=== PATIENT | male | born 2000 | race Caucasian/White ===

== ENCOUNTER 2024-02-29 06:20 | Emergency (ER) | payer SELFPAY ==
[2024-02-29 06:23] VITALS: BP 134/64; PULSE 73; RESP 16; TEMP 36.7; O2SAT 98; BMI 29.2
[2024-02-29 06:26] VITALS: BP 128/65; PULSE 66; RESP 16; TEMP 36.7; O2SAT 97; O2SAT 99
--- NOTE | 2024-02-29 06:40 | EKG12_ITS ---
Test Reason : CP/SOB Blood Pressure : / mmHG Vent. Rate : 063 BPM Atrial Rate : 063 BPM P-R Int : 148 ms QRS Dur : 090 ms QT Int : 410 ms P-R-T Axes : 054 064 042 degrees QTc Int : 419 ms Normal sinus rhythm Normal ECG Confirmed by SHELBI NORRIS, COLLIN ([id number]), school photograph editor MAVIS POSEY ([id number]) on 03/07/2024 10:24:00 A M Referred By: ODILIA Confirmed By:MUSHTAQ MARIO MD
--- NOTE | 2024-02-29 06:43 | EDS_ITS ---
HPI History of Present Illness Chief Complaint: Shortness of Breath Informant: patient Narrative Narrative: Patient is a 23-year-old male with no significant past medical history although he does admit to smoking roughly a pack a day for the past 3 years. He states that over the past week he has had mild congestion and cough. With this he has increased shortness of breath. He denies any history of asthma or reactive airway disease. He denies any fevers or chills or known sick contact. He states has been no recent travel or surgery nor has he ever been diagnosed with a DVT/PE. He states is no family history of cardiac disease at a young age. He states however he feels like his shortness of breath has worsened and therefore comes in for evaluation [facility] Medical History no medical history no medical history Home Medications ?Medication ?Instructions ?Recorded ?Last Taken ?Type albuterol sulfate 90 mcg/actuation 2 puff inhalation Q4H PRN PRN 02/29/24 Unknown Rx aerosol inhaler (Ventolin HFA) Wheezing/SOB #1 device prednisone 20 mg tablet 40 mg (2 x 20 mg) PO DAILY 7 days 02/29/24 Unknown Rx #14 tabs Allergy/AdvReac Type Severity Reaction Status Date / Time No Known Allergies Allergy Verified 02/29/24 06:23 Family History no significant family his Surgical History no surgical history Social History Smoking Status: Current every day smoker tobacco type: cigarettes ROS ROS ED Constitutional Constitutional ED: Denies chills or fever(s) ENT ENT ED: Reports rhinorrhea and sore throat Cardiovascular Cardiovascular: Denies chest pain Respiratory/Chest Respiratory/Chest: Reports cough and dyspnea Gastrointestinal Gastrointestinal: Denies abdominal pain, diarrhea, nausea or vomiting Genitourinary Genitourinary ED: Denies dysuria Musculoskeletal Musculoskeletal: Denies myalgias Integumentary Denies rash Neurologic Neurologic: Denies headache(s) Hematologic/Lymphatic Hematologic/Lymphatic: Denies easy bleeding or easy bruising EXAM Physical Exam Const Vital Signs: 02/29/24 06:23 02/29/24 06:26 02/29/24 06:26 Temperature 98.1 F 98.1 F Temperature Source Oral Oral Pulse Rate 73 66 Respiratory Rate 16 16 Respiratory Effort Short of Breath Respiratory Pattern Normal Blood Pressure 134/64 H 128/65 H Blood Pressure Mean 87 86 Pulse Ox 98 99 Oxygen Delivery Method Room Air Room Air Room Air 02/29/24 06:50 Temperature Temperature Source Pulse Rate 65 Respiratory Rate 16 Respiratory Effort Respiratory Pattern Blood Pressure Blood Pressure Mean Pulse Ox Oxygen Delivery Method Positive well nourished and well developed General Appearance ED: well developed; Negative for pallor HEENT HEENT Narrative: Bilateral TMs are retracted but show no secondary changes to suggest infection Nasal mucosa is hyperemic and boggy Posterior pharynx displays cobblestoning consistent with sinus drainage without airway edema or compromise No secondary findings to suggest infection Eyes PERRL and EOMs intact bilaterally General Eye ED: Negative for pale conjunctiva or scleral icterus Neck supple and no JVD Neck Narrative: No nuchal rigidity or meningeal signs noted Chest Wall palpation of chest normal Chest Narrative: No bony deformity or crepitance Resp normal respiratory effort Resp Narrative: Breath sounds are diminished throughout with scattered rhonchi and faint expiratory wheezes in the bilateral lower lobes. Otherwise no nasal flaring retractions tachypnea or accessory muscle use Cardio regular rate and regular rhythm Rate: other Other Details: Heart is regular rate and rhythm without murmurs rubs or gallops Radial and carotid pulses are equal and symmetric Extremity normal to inspection Extremity Narrative: No asymmetric edema no pitting edema negative Homans' sign bilaterally Neuro oriented x3, CN's II-XII intact bilaterally and no sensory deficits noted Sensorium / Orientation: alert Motor Exam: strength 5/5 throughout Psych mental status grossly normal Skin no rashes or lesions noted and no wounds General Skin Exam: Negative for jaundice or pallor MDM MDM MDM Narrative Medical decision making narrative: Patient arrived to ER with stable vitals satting 98 to 100% on room air. He reported shortness of breath with mild congestion and differential diagnosis is for viral infection such as COVID versus influenza versus RSV. There is also concern for pneumonia versus pneumothorax. He is low risk for acute coronary syndrome but ACS is not a dyspnea equivalent and he does not have any risk factors for PE but that is still in the differential. Secondary to this an EKG was obtained which revealed normal sinus rhythm without ischemic changes and as patient is PERC negative there is no need for a D-dimer. Inferior acute blood loss anemia or electrolyte abnormality such as hypomagnesemia could lead to shortness of breath but patient denies any history of bleeding disorder or acute blood loss and has not had bouts of nausea or vomiting which goes against an electrolyte abnormality. Therefore there is no need for blood tests. As patient's history and exam is most consistent with a viral syndrome COVID influenza and RSV swab will be obtained in order to rule out pneumonia chest x- ray will be ordered. Patient's viral swab is negative and chest x-ray revealed no acute lung pathology. After receiving Solu-Medrol and a breathing treatment he did have improvement of symptoms and he remained in no acute respiratory distress. Therefore at this time with improvement of symptoms and negative workup there is no need for further evaluation and patient is otherwise safe for discharge History & Record Review Discussion w/independent historian: Patient Discharge Plan Triage Chief Complaint: Shortness of Breath ED Provider: Alan Oliver Dx/Rx/DC Orders Clinical Impression: Viral upper respiratory tract infection with cough, Tobacco use Instructions: ED Pleurisy, ED URI, Viral, No Abx (Adult) Prescriptions: New prednisone 20 mg tablet 40 mg PO DAILY 7 Days Qty: 14 0RF albuterol sulfate [Ventolin HFA] 90 mcg/actuation HFA aerosol inhaler 2 puff inhalation Q4H PRN PRN (Reason: Wheezing/SOB) Qty: 1 0RF Primary Care Provider: Abbie Ramos,Out of Referrals: Abbie Ramos,Out of [Primary Care Provider] - Activity Restrictions/Additional Instructions: Your workup today showed no signs of pneumonia and your COVID test was negative. However your constellation of symptoms is consistent with a viral infection. This will last on average 3 weeks. Use the prednisone as directed to reduce inflammation and the inhaler to help with bronchospasm. Return to the ER should you have any further concerns or worsening symptoms despite treatment Print Language: Khmer Disposition Disposition: Home, Self Care
[2024-02-29] MEDS: Ipratropium/Albuterol Sulfate 3 ML AMPUL.NEB INHALATION (06:48)
[2024-02-29 06:50] VITALS: PULSE 65; RESP 16
[2024-02-29] MEDS: MethylPREDNISolone 125 MG/2 ML Vial IV (06:55)
--- NOTE | 2024-02-29 07:10 | RAD_ITS ---
INDICATION: cough EXAMINATION/TECHNIQUE: X-RAY - XR Chest 2 Views COMPARISON: None. FINDINGS: LINES/DEVICES: None. LUNGS: No consolidation. No pneumothorax. MEDIASTINUM: Unremarkable. CARDIAC SILHOUETTE: Not enlarged. BONES AND SOFT TISSUES: No acute abnormalities. RAD/Chest PA and Lateral IMPRESSION: No evidence of active intrathoracic disease. Electronically Signed: Alison Zamudio MD at 7:35 EDT ,
[2024-02-29 07:26] VITALS: BP 128/61; PULSE 73; RESP 15; TEMP 36.4; O2SAT 97
[2024-02-29 07:39] VITALS: BP 128/73; PULSE 88; RESP 18; TEMP 36.7; O2SAT 98
== END 2024-02-29 07:46 | disposition home or self-care (01) ==
PROVIDERS: Emergency Provider Emergency Medicine; Visit Provider Emergency Medicine
DX: J06.9 Acute upper respiratory infection, unspecified (principal); F17.210 Nicotine dependence, cigarettes, uncomplicated
CPT/HCPCS: 71046; 87631; 93005; 94640; 96374; 99283; A4216

== ENCOUNTER 2024-03-14 10:59 | Emergency (ER) | payer SELFPAY ==
[2024-03-14 10:59] VITALS: BP 125/81; PULSE 74; RESP 14; TEMP 36.6; O2SAT 98; BMI 28.1
--- NOTE | 2024-03-14 11:04 | ED.RN ---
CO-WORKER WITH PT STATES WE NEED TO WORRY ABOUT HIS FOOT BEFORE THE WORKERS COMP STUFF.
[2024-03-14] MEDS: Diphth,Pertuss(Acell),Tet Vac 0.5 ML Vial IM (11:34)
[2024-03-14] MEDS: HYDROmorphone 1 MG/ML Syringe IV (11:35)
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
[2024-03-14] MEDS: Cefazolin 1 GM/50 ML BAG IV (11:57)
[2024-03-14 11:59] VITALS: BP 138/68; PULSE 70; RESP 16; O2SAT 98
[2024-03-14 12:00] VITALS: BP 138/68; PULSE 70; RESP 16; O2SAT 98
[2024-03-14 13:00] VITALS: BP 101/52; PULSE 50; RESP 14; O2SAT 100
[2024-03-14] MEDS: Morphine 2 MG/ML Syringe IV (13:07)
[2024-03-14 14:17] VITALS: BP 125/65; PULSE 55; RESP 17; TEMP 36.6; O2SAT 100
--- NOTE | 2024-03-14 14:18 | ED.RN ---
Report given to Rosibel RONQUILLO @ [facility].
--- NOTE | 2024-03-14 14:31 | ED.RN ---
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 Both understood and agreed. Pt taken out by wheelchair.
== END 2024-03-14 14:32 | disposition short-term general hospital (02) ==
PROVIDERS: Emergency Provider Emergency Medicine; Visit Provider Emergency Medicine
DX: T70.4XXA Effects of high-pressure fluids, initial encounter (principal); T25.022A Burn of unspecified degree of left foot, initial encounter; F17.210 Nicotine dependence, cigarettes, uncomplicated; X11.8XXA Contact with other hot tap-water, initial encounter; Z23 Encounter for immunization
CPT/HCPCS: 73590; 73630; 90471; 90715; 96365; 96375; 99284; A4216; J3490

== ENCOUNTER 2024-04-26 06:28 | Emergency (ER) | payer SELFPAY ==
[2024-04-26 06:30] VITALS: BP 148/80; PULSE 72; RESP 16; TEMP 36.4; O2SAT 98; BMI 27.3
--- NOTE | 2024-04-26 06:39 | ED.VIS.GI ---
HPI HPI - GI History of Present Illness Chief Complaint: Nausea/Vomiting Narrative Narrative: 23-year-old male who denies significant past medical history presents with nausea and vomiting that began this morning. Happened about an hour ago. He woke up and felt nauseated. He vomited twice without any blood in his emesis. Last bowel movement was approximately 2 days ago which is normal for him. He denies any past abdominal surgeries. No fevers or chills. No dysuria or hematuria. He has crampy abdominal pain in the periumbilical area. Denies any marijuana use. No exacerbating or alleviating factors. He did smoke a cigarette this morning which she thinks may have his nausea worse. It was before he started vomiting. PFSH PFS Home Medications ?Medication ?Instructions ?Recorded ?Last Taken ?Type melatonin 10 mg capsule 20 mg PO QHS 04/26/24 Unknown History Allergy/AdvReac Type Severity Reaction Status Date / Time No Known Allergies Allergy Verified 04/26/24 06:29 Social History Smoking Status: Current every day smoker tobacco type: cigarettes ROS ROS ED ROS Narrative Constitutional: No fever, no chills. Cardiovascular: No chest pain. No palpitations. No pedal edema. Respiratory: No cough, no shortness of breath. Abdominal: Periumbilical crampy abdominal pain. 2 episodes of nausea and vomiting. No diarrhea. Genitourinary: No dysuria. No hematuria. Neurologic: No headaches. No dizziness. No lightheadedness. Psychiatric: No depression. No anxiety. EXAM Physical Exam Narrative Exam Narrative: Afebrile. Vital signs noted. Nontoxic-appearing. Regular rate and rhythm. Lungs are clear to auscultation bilaterally. Abdomen is soft and nontender without guarding or rebound. Negative Kraft sign. Normoactive bowel sounds. Neurological examination is nonfocal and nonlateralizing. Const Vital Signs: 04/26/24 06:30 Temperature 97.6 F L Temperature Source Temporal Pulse Rate 72 Respiratory Rate 16 Blood Pressure 148/80 H Blood Pressure Mean 102 Pulse Ox 98 Oxygen Delivery Method Room Air MDM MDM MDM Narrative Medical decision making narrative: Differential diagnosis includes but not limited to gastritis versus pancreatitis versus nonspecific abdominal pain. I have low suspicion for acute appendicitis based on his current physical examination. He has no pain in the right lower quadrant. Initially, patient will be treated symptomatically with a bolus of normal saline and ondansetron along with an intramuscular shot of Bentyl. Will check his CBC, CMP, and lipase to help rule out pancreatitis. After these are checked, any imaging will be deferred to the oncoming physician. I did review his laboratory work and he has a normal white count of 7.6, hemoglobin 16.4 hematocrit 47.5, platelet count normal at 250. I reviewed his CMP and his glucose is elevated at 113 with an anion gap low at 4. LFTs are grossly unremarkable. Lipase is normal at 36 so I doubt pancreatitis. Repeat examination at approximately 7:15 AM shows that he still has periumbilical pain with mild tenderness, and he has less nausea. Given my reassessment that he is still having abdominal pain. CT of the abdomen and pelvis with IV contrast will be obtained to rule out any acute pathology. Patient will be signed out to the oncoming physician, Dr. Dill to check the CT of the abdomen and pelvis and make final disposition. Patient is in stable condition. History & Record Review Discussion w/independent historian: Patient Lab Data Attestation: I reviewed the patient's lab results. Labs: Laboratory Results - last 24 hr 04/26/24 06:46 WBC 7.6 RBC 5.21 Hgb 16.4 Hct 47.5 MCV 91.2 MCH 31.5 MCHC 34.5 RDW Std Deviation 39.9 RDW Coeff of Rene 12.0 Plt Count 250 MPV 9.8 Immature Gran % (Auto) 0.400 Neut % (Auto) 59.0 Lymph % (Auto) 30.9 [place] % (Auto) 6.7 Eos % (Auto) 2.1 Baso % (Auto) 0.9 Absolute Neuts (auto) 4.5 Absolute Lymphs (auto) 2.36 Nucleated RBC % 0 Sodium 141 Potassium 3.7 Chloride 106 Carbon Dioxide 31.0 Anion Gap 4 L BUN 15 Creatinine 0.83 Estim Creat Clear Calc 131.63 Est GFR (MDRD) Af Amer 145 Est GFR (MDRD) Non-Af 120 BUN/Creatinine Ratio 18.2 Glucose 113 H Calcium 9.5 Total Bilirubin 0.50 AST 17 ALT 21 Alkaline Phosphatase 72 Total Protein 7.3 Albumin 4.2 Globulin 3.1 Albumin/Globulin Ratio 1.4 Lipase 36 Discharge Plan Triage Chief Complaint: Nausea/Vomiting ED Provider: Aquilino Craig Dx/Rx/DC Orders Prescriptions: No Action melatonin 10 mg capsule 20 mg PO QHS Primary Care Provider: Care Physician,No Primary Referrals: Care Physician,No Primary [Primary Care Provider] - Print Language: [place] Citizen
[2024-04-26] MEDS: 0.9% Normal Saline (1000mL) 1,000 ML 999 ML IV (06:46)
[2024-04-26] MEDS: Ondansetron 4 MG/2 ML Vial IV (06:46)
[2024-04-26] MEDS: Dicyclomine 20 MG/2 ML Vial IM (06:49)
[2024-04-26 06:51] LABS: Absolute Lymphocyte Count 2.36 X10^3/uL (0.83-4.51); Absolute Neutrophil Count 4.5 X10^3/uL (2.0-7.7); Basophil# 0.07 X10^3/uL; Basophil% 0.9 % (0-1); Eosinophil# 0.16 X10^3/uL; Eosinophils% 2.1 % (0-5); Hematocrit 47.5 % (40-54); Hemoglobin 16.4 g/dL (13.0-16.5); Lymphocyte # 2.36 X10^3/ul (0.83-4.51); Lymphocyte % 30.9 % (19-41); Mean Corp Hgb Conc 34.5 g/dL (32-36); Mean Corpuscular Hgb 31.5 pg (27.0-32.0); Mean Corpuscular Volume 91.2 fL (80-94); Mean Platelet Vol. 9.8 fl (6.2-12.0); Monocyte# 0.51 X10^3/uL; Monocyte% 6.7 % (0-10); NRBC Flagged by Analyzer 0 % (0-5); Neutrophil # 4.51 X10^3/uL (2.7-7.7); Platelet Count 250 K/mm3 (150-450); RBC Distribution Width SD 39.9 fl (35.1-43.9); Red Blood Count 5.21 M/mm3 (4.6-6.2); White Blood Count 7.6 K/mm3 (4.4-11.0)
[2024-04-26 07:07] LABS: ALB/GLOB Ratio 1.4 RATIO (0.9-2.4); AST(SGOT) 17 U/L (15-37); Alanine Aminotransfer ALT/SGPT 21 U/L (16-61); Albumin, Serum 4.2 g/dL (3.2-5.0); Alkaline Phosphatase 72 U/L (45-117); Anion Gap 4 (5-15); BUN 15 mg/dL (7-18); BUN/Creat Ratio 18.2 RATIO (10-20); Calcium,Total 9.5 mg/dL (8.5-10.1); Chloride 106 mmol/L (98-107); Creatinine, Serum 0.83 mg/dL (0.70-1.30); EST Glomerular Filtration Rate 120 mL/min (>60); Est Glom Filt Rate - Afr Amer 145 mL/min (>60); Estimated Creatinine Clearance 131.63 ml/min; Globulin 3.1 g/dL (2.2-4.2); Glucose 113 mg/dL (74-106); Lipase 36 U/L (13-75); Potassium 3.7 mmol/L (3.5-5.1); Protein, Total 7.3 g/dL (6.4-8.2); Sodium Level 141 mmol/L (136-145)
--- NOTE | 2024-04-26 07:16 | CT_ITS ---
EXAM: CT ABDOMEN AND PELVIS WITH INTRAVENOUS CONTRAST CLINICAL INDICATION: abdominal pain TECHNIQUE: Helically acquired images were obtained of the abdomen and pelvis with intravenous contrast. This CT exam was performed using one or more of the following dose reduction techniques: automated exposure control, adjustment of the mA and/or kV according to patient size, and/or use of iterative reconstruction technique. CONTRAST: IV 100mL Isovue-370 RADIATION DOSE: CTDIvol = 12.08 mGy, DLP = 586.82 mGy-cm COMPARISON: No relevant prior studies available. FINDINGS: LOWER THORAX: Unremarkable. Lung bases are clear. No cardiomegaly. No significant pericardial effusion. ABDOMEN: LIVER: Unremarkable. Homogeneous. No focal mass. GALLBLADDER AND BILE DUCTS: Unremarkable. No calcified gallstones. No gallbladder distention or wall edema. No intra- or extrahepatic biliary ductal dilation. PANCREAS: Unremarkable. No focal cystic or solid mass. SPLEEN: Unremarkable. Normal size without focal cystic or solid mass. ADRENALS: Unremarkable. No nodules. KIDNEYS AND URETERS: Unremarkable. Normal renal size and position. No hydronephrosis. STOMACH AND BOWEL: Unremarkable. No stomach or bowel distention. No focal inflammatory change. PELVIS: APPENDIX: Normal. BLADDER: Unremarkable. REPRODUCTIVE: Unremarkable as visualized. No mass. ABDOMEN and PELVIS: INTRAPERITONEAL SPACE: Unremarkable. No ascites or other fluid collection. No free air. BONES/JOINTS: Unremarkable. No suspicious lytic or blastic abnormality. SOFT TISSUES: Unremarkable. No discrete abdominal or pelvic wall hernia. VASCULATURE: Unremarkable. Abdominal aorta is non-dilated. LYMPH NODES: Unremarkable. No enlarged lymph nodes. CT/Abdomen/Pelvis W IV Cont ONLY IMPRESSION: Negative CT of the abdomen and pelvis with intravenous contrast. Electronically Signed: Aquilino Starr MD at 8:31 EDT ,
[2024-04-26 09:59] VITALS: BP 124/80; PULSE 57; RESP 18; TEMP 36.6; O2SAT 97
== END 2024-04-26 10:01 | disposition home or self-care (01) ==
PROVIDERS: Emergency Provider Emergency Medicine; Visit Provider Emergency Medicine
DX: R11.2 Nausea with vomiting, unspecified (principal); F17.210 Nicotine dependence, cigarettes, uncomplicated; R10.33 Periumbilical pain
CPT/HCPCS: 74177; 80053; 83690; 85025; 96361; 96372; 96374; 99283; J7030; Q9967; A4216; J2405